=== PATIENT | female | born 1955 | race Caucasian/White ===

== ENCOUNTER 2025-02-07 14:33 | Emergency (ER) | payer MEDICARE, BC, SELFPAY ==
--- OUTSIDE RECORDS SUMMARY | 2025-02-07 14:36 | XMS_ITS | Clinical Summary ---
Author Organization [facility] Address [address] [place] [address] Care Team Providers Care Spray Technician Name Role Phone Gage Downs MD Unavailable [phone] AdinaMadelaine MD Primary Care Provider Allergies Active AllergyReactionsCriticalityNoted DateCommentsSulfa (Sulfonamide Antibiotics)Hives11/04/2008 Medications MedicationSigDispense QuantityRefillsLast FilledStart DateEnd DateStatus durable medical equipment (DME) Indications:Elevated blood pressure reading without diagnosis of hypertension Automated home BP cuff. Length of need 99 1 Each 2Active albuterol HFA (PRO-AIR; VENTOLIN; PROVENTIL) 90 mcg/actuation inhaler Indications:Subacute coughInhale 2 Puffs by mouth every 4 hours if needed for Shortness of Breath 1st choice. For breathing; use with spacer to get a full dose 1 Each 4Active alendronate (FOSAMAX) 70 mg tablet Indications:Osteoporosis, unspecified osteoporosis type, unspecified pathological fracture presenceTake 1 Tablet (70 mg) by mouth once a week in the morning. Take on empty stomach with full glass ofwater. Do not lie down for 1 hr. 12 Tablet 5Active montelukast (SINGULAIR) 10 mg tablet Indications:Seasonal allergiesTake 1 Tablet (10 mg) by mouth at bedtime. 90 Tablet 5Active venlafaxine (EFFEXOR XR) 75 mg cp24 Extended-Release capsule Indications:AnxietyTake 1 Capsule (75 mg) by mouth once daily with a meal. 90 Capsule 5Active venlafaxine (EFFEXOR XR) 37.5 mg Extended-Release capsule Indications:AnxietyTake 1 Capsule (37.5 mg) by mouth once daily with a meal. Take with 75 mg dose for total dose of 112.5 mg/day 90 Capsule 5Active montelukast (SINGULAIR) 10 mg tablet Indications:Seasonal allergiesTake 1 Tablet (10 mg) by mouth at bedtime. 90 Tablet Discontinued(Reorder (E-cancel not sent)) alendronate (FOSAMAX) 70 mg tablet Indications:Osteoporosis, unspecified osteoporosis type, unspecified pathological fracture presenceTake 1 Tablet (70 mg) by mouth once a week in the morning. Take on empty stomach with full glass ofwater. Do not lie down for 1 hr. 12 Tablet Discontinued(Reorder (E-cancel not sent)) venlafaxine (EFFEXOR XR) 75 mg cp24 Extended-Release capsule Indications:AnxietyTake 1 Capsule (75 mg) by mouth once daily with a meal. 90 Capsule Discontinued(Reorder (E-cancel not sent)) venlafaxine (EFFEXOR XR) 37.5 mg Extended-Release capsule Indications:AnxietyTake 1 Capsule (37.5 mg) by mouth once daily with a meal. Take with 75mg cap for total daily dose of 112.5mg 90 Capsule Discontinued venlafaxine (EFFEXOR XR) 37.5 mg Extended-Release capsule Indications:Anxietytake 1 capsule by mouth once daily in combination with 75mg capsule for a total dose of 112.5mg. 30 Capsule Discontinued(Reorder (E-cancel not sent)) Active Problems ProblemNoted DateDiagnosed YcbdCizlhczyoh08/16/5847Meqiuve07/22/2011 Resolved Problems ProblemNoted DateDiagnosed DateResolved MkbvKrkgucuohbyq56 Encounters DateTypeDepartmentCare GnxyEwzfvsnplsv63/11/2025Results Follow-Up [facility] [address] [facility] [address] Madelaine Holden MD 02/04/2025 9:15 AM CSTOffice Visit [facility] [address] [place] [address] Madelaine Holden MD Medicare ANNUAL (subsequent) Visit (69 YR/Discuss when to have cardiac CT done again)02/04/20251364Ausnpt15/17/2025Refill [facility] [address] [place] [address] Madelaine Holden MD Refill Request (Venlafaxine)from Last 3 Months Immunizations ImmunizationAdministration DatesNext DueCOVID-19 vaccine ([employer] 30mcg/0.3mL) MD BEATRIZV08/12/2020,07/22/2020InflJAYDE orellana3 (Age >=3 years) 12/25/2003,01/23/2003Pneumococcal Conj 20-valent (Prevnar 20)11/30/2021Tdap 10/12/2017Zoster (Shingrix-RZV, recombinant)04/22/2019,10/18/2018 Family History Medical HistoryRelationNameCommentsDiabetesBrotherFrontotemporal dementia DaughterCancer-prostateFatherCoronary artery diseaseFatherDiabetesFatherDiabetes MotherAnesthesia ProblemNo Family HistoryBlood DiseaseNo Family History Cancer-breastNo Family HistoryCancer-ovarianNo Family HistoryRelationNameStatus CommentsBrotherDaughterAliveFatherMother Social History Tobacco UseTypesPacks/DayYears UsedDateSmoking Tobacco: NeverSmokeless Tobacco: Never Tobacco Cessation:Counseling Given: Yes Alcohol UseStandard Drinks/WeekCommentsYes0 (1 standard drink = 0.6 oz pure alcohol)rareHumiliation, Afraid, Rape, and Kick questionnaireAnswerDate Recorded Fear of Current or Ex-TghrppxLq90/23/2019Emotionally HbdkhoUq23/23/2019 Physically GivoehVq70/23/2019Sexually NlzjrdHd81/23/2019PHQ-2AnswerDate Recorded PHQ-2 TOTAL AXBAG22204/07/2024[facility] [place] [facility] - Occupational Stress QuestionnaireAnswerDate RecordedFeeling of StressNot at all 10/18/2018Exercise Vital SignAnswerDate RecordedDays of Exercise per Week4 days 10/18/2018Minutes of Exercise per Yunzijz07 min10/18/2018Social Connections AnswerDate RecordedDo you often feel lonely or isolated from those around you?0 01/18/2024lcohol UseAnswerDate RecordedHow often do you have a drink containing alcohol?verage Number of DrinksNot on file02/04/2025Frequency of Binge DrinkingNot on file02/04/2025Financial Resource StrainAnswerDate Recorded Difficulty of Paying Living Jqdseozi188/22/2024ifficulty of Paying Living ExpensesNot on file01/18/2024Food InsecurityAnswerDate RecordedDo you worry your food will run out before you are able to buy more?Transportation NeedsAnswerDate RecordedDoes lack of transportation keep you from medical appointments?oes lack of transportation keep you from work, meetings or getting things that you need?Housing StabilityAnswerDate Recorded What is your housing situation today?UtilitiesAnswerDate RecordedDo you have trouble paying for utilities (for example, heat, electricity, water, phone)?regnantCommentsNoSex and Gender InformationValueDate Recorded Sex Assigned at BirthNot on fileLegal PniFusscc45/14/2013 5:24 AM CSTGender IdentityNot on fileSexual OrientationNot on fileOccupationIndustryJob Start Date Job End DateNot on fileNot on fileNot on fileNot on file Last Filed Vital Signs Vital SignReadingTime TakenCommentsBlood Fmvfzawn698/7802/04/2025 9:20 AM ACCOUNTING RECONCILIATION CLERK Xvstx5427 9:20 AM GXEWsvedkeunaw94.7 ??C (98 ??F)08/03/2021 11:04 AM CDT Respiratory Ffzv8525 11:24 AM CDTOxygen Sljsxlbwde47%02/04/2025 9:20 AM CSTInhaled Oxygen Concentration--Fwvqoy18.4 kg (155 lb 3.2 oz)02/04/2025 9:20 AM VRVBjykja415 cm (5' 5.35)02/04/2025 9:20 AM CSTBody Mass Index25.5502/04/2025 9:20 AM ACCOUNTING RECONCILIATION CLERK Plan of Treatment DateTypeDepartmentCare Team (Latest Contact Info)Ovqkizfvmxy87/17/2025 1:20 PM CSTAncillary Procedure [facility] [address] [place] [place] [address] Health MaintenanceDue DateLast DoneCommentsFecal testing non-DNA (FIT,FOBT,iFOBT) for age 45-750OVID-19 vaccine series (2024- season), 07/22/2020Influenza Vaccine (#1)2024 12/25/2003, 01/23/2003Mammogram for age 45-75, 01/09/2023, 12/08/2021, Additional history existsBMI (ht and wt on same day) for age 18+ , 01/18/2024, 01/05/2023, Additional history exists Depression screening for age 12+, 02/06/2024, 01/18/2024, Additional history existsMedicare Wellness for age 65+, 01/18/2024, 01/05/2023Tetanus , 06/07/2008 (Completed outside of [facility])Lipids for age 45-75, 01/18/2024, 01/05/2023, Additional history existsRSV vaccine for adults or (1 - 1- dose 75+ series)11/05/2030Hepatitis C screening for age 18-25Zcgxoxobr83/23/2019 Zoster (shingles) series for age 50+Guiwgzkyu38/25/2020, 10/18/2018Pneumococcal series for age 50+Eqgegevka68/05/2022DEXA/DXA scan for age 65+Completed 02/06/2024, 12/08/2021, 11/12/2018, Additional history existsHepatitis B series for 19+Aged OutNo longer eligible based on patient's age to complete this topic Procedures Procedure NamePriorityDate/TimeAssociated DiagnosisCommentsGLUCOSE, FASTING Vrsgund4102/04/2025 9:51 AM ACCOUNTING RECONCILIATION CLERK Diabetes mellitus screening LIPID PANEL W REFLEX MEASURED IURQhkluta27/10/2025 9:51 AM ACCOUNTING RECONCILIATION CLERK Hyperlipidemia, unspecified hyperlipidemia type XR MAMMO NETO BILAT SELXZJBhlniau13/11/2024 9:33 AM ACCOUNTING RECONCILIATION CLERK Routine adult health maintenance XR DXA BONE DENSITY 2 SITES SGZTNSwjkzsx67/11/2024 8:50 AM ACCOUNTING RECONCILIATION CLERK Menopause OCCULT BLOOD IFOBT EAHKUOexuarl47/24/2023 7:00 AM CDT Screening for colon cancer ANTI JQRWsrysiq25/23/2019 10:02 AM CDT Need for hepatitis C screening test from Last 3 Months or Most Recently Relevant to Health Maintenance Results * LIPID PANEL W REFLEX MEASURED LDL (02/04/2025 9:51 AM ACCOUNTING RECONCILIATION CLERK)ComponentValueRef RangeTest MethodAnalysis TimePerformed AtPathologist SignatureCHOLESTEROL, NSOOB861<200 mg/dL02/05/2025 3:37 AM CSTQUEST BBBTMOQCIGROQOQTRWOBVCPL178<150 mg/dL02/05/2025 3:37 AM CSTQUEST DIAGNOSTICSHDL KHWGZVNWUNR11> OR = 50 mg/dL 02/05/2025 3:37 AM CSTQUEST DIAGNOSTICSNON HDL GPJHGKCNGAF278<130 mg/dL (calc) 02/05/2025 3:37 AM CSTQUEST DIAGNOSTICSComment: For patients with diabetes plus 1 major ASCVD risk factor, treating to a non-HDL-C goal of <100 mg/dL (LDL-C of <70 mg/dL) is considered a therapeutic option. CHOL/HDLC RATIO3.3<5.0 (calc)02/05/2025 3:37 AM CSTQUEST DIAGNOSTICS LDL-KNGEKFKWIFZ61bu/dL (calc)02/05/2025 3:37 AM CSTQUEST DIAGNOSTICSComment: Reference range: <100 Desirable range <100 mg/dL for primary prevention; <70 mg/dL for patients with CHD or diabetic patients with > or = 2 CHD risk factors. LDL-C is now calculated using the Brennan calculation, which is a validated novel method providing better accuracy than the Friedewald equation in the estimation of LDL-C. Cj SS et al. KEVIN. 2013;310(85): 0534-3221 (http://education.Capablue.Simple.TV/faq/EMK578) Specimen (Source)Anatomical Location / LateralityCollection Method / Volume Collection TimeReceived TimeBloodBLOOD SPECIMEN / UnknownQuest Collect / Unknown 02/04/2025 9:51 AM CST02/04/2025 9:51 AM ACCOUNTING RECONCILIATION CLERK Narrative Authorizing ProviderResult TypeResult StatusMadelaine Holden MDCHEMISTRY Final ResultPerforming OrganizationAddressty/State/ZIP CodePhone Number [employer] [place] [address] [place] [address], [place] [phone] * GLUCOSE, FASTING (02/04/2025 9:51 AM ACCOUNTING RECONCILIATION CLERK)ComponentValueRef RangeTest Method Analysis TimePerformed AtPathologist MlfjyktimIPTXZYF6875 - 99 mg/dL02/05/2025 3:37 AM CSTQUEST DIAGNOSTICSComment: ? Fasting reference interval Specimen (Source)Anatomical Location / LateralityCollection Method / Volume Collection TimeReceived TimeBloodBLOOD SPECIMEN / UnknownQuest Collect / Unknown 02/04/2025 9:51 AM CST02/04/2025 9:51 AM ACCOUNTING RECONCILIATION CLERK Narrative Authorizing ProviderResult TypeResult StatusMadelaine Holden MDCHEMISTRY Final ResultPerforming OrganizationAddressty/State/ZIP CodePhone Number [employer] [facility] [address] [place] [address], [place] [phone] * XR MAMMO NETO BILAT SCREEN (02/06/2024 9:33 AM ACCOUNTING RECONCILIATION CLERK)Anatomical RegionLaterality ModalityBREASTS, Breast Left, Breast RightBilateralMammographySpecimen (Source)Anatomical Location / LateralityCollection Method / VolumeCollection TimeReceived Time Impressions 02/06/2024 2:34 PM ACCOUNTING RECONCILIATION CLERK There is no radiographic evidence for malignancy. Recommend annual mammograms. MAMMOGRAM ASSESSMENT: ??ACR 1 Negative PATIENTS: You will also receive a letter with your examination results in an easy to read format. ??If you have questions about your results, please contact your referring provider. Narrative 02/06/2024 2:34 PM ACCOUNTING RECONCILIATION CLERK For Patients: As a result of the Cures Act, medical imaging exams and procedure reports are released immediately into your electronic medical record. You may view this report before your referring provider. If you have questions, please contact your health care provider. XR MAMMO NETO BILAT SCREEN [[id number]] CLINICAL HISTORY: ??This is an asymptomatic 68 y.o. patient. INDICATION FOR EXAM: Mammogram Screening. TECHNIQUE: CC & MLO views were obtained. This study was evaluated with the assistance of Computer-Aided Detection. Breast Tomosynthesis was used in interpretation. COMPARISON FILM: Yes 01/09/23 [facility] 12/08/21 [employer] FINDINGS: ??There are scattered areas of fibroglandular density. There are no dominant masses, suspicious micro calcifications or areas of architectural distortion. Authorizing ProviderResult TypeResult StatusMadelaine Holden MDMAMMOFinal Result * (ABNORMAL) XR DXA BONE DENSITY 2 SITES AXIAL (02/06/2024 8:50 AM ACCOUNTING RECONCILIATION CLERK) Anatomical RegionLateralityModalitySpine, HIPS, HIPL, HIPROtherSpecimen (Source)Anatomical Location / LateralityCollection Method / VolumeCollection TimeReceived Time Impressions 02/12/2024 1:51 PM ACCOUNTING RECONCILIATION CLERK Osteopenia. Due to the stability of the bone density, continue present medication if indicated. RECOMMENDATIONS: The National Osteoporosis Foundation recommends pharmacologic treatment for patients with T-scores of -2.5 or less, patients with prior history of fragility fractures, or patients with 10-year probability of greater than 3% at hips or greater than 20% of suffering major osteoporotic fractures. Recommend continued optimization of calcium and vitamin D intake through dietary means and/or supplementation and regular exercise. Continue current Alendronate (Fosamax) medication treatment. Consider a drug holiday from bisphosphonates if indicated. Kamala Mesa PA-C [facility] 02/12/2024 ?? Narrative 02/12/2024 1:51 PM ACCOUNTING RECONCILIATION CLERK For Patients: Results are automatically released to your [facility] ([employer]) account once available, in compliance with federal regulations. This means that you may see your results before your provider has had a chance to review them. Please allow 2-3 business days for your provider to comment on the results. XR DXA Bone Mineral Density (BMD) EXAM LOCATION: [address] [address] PATIENT NAME: Kailee Healy DATE OF : 1955 EXAM DATE: 02/06/2024 REQUESTING PROVIDER: Madelaine Holden MD GENDER AT : female HEIGHT: 5' 5.25 (01/18/2024) WEIGHT: ??163 lb 3.2 oz (01/18/2024) MENOPAUSAL STATUS: Postmenopausal RACE/ETHNICITY: White RISK FACTORS: White Race CURRENT MEDICATION FOR BONE LOSS: Alendronate (Fosamax) INDICATION: Follow-up of existing osteopenia, Follow-up of pharmacologic treatment, and Post-Menopause COMPARISON DATE(S): 2021 DXA scans are compared to prior studies for a patient only when the two (or more) studies were performed on the same scanner. It is not possible to compare data generated on one scanner to data from another because there are not standards in DXA equipment. This applies even if the two scanners are made by the same supervisor putty and caluking. PROCEDURE: Dual-energy x-ray absorptiometry performed with routine technique. Reporting is completed in the form of a T-score. The T-score represents the standard deviation from peak bone mass based on young healthy adult. A Z-score is used for diagnosis in premenopausal women, and for men under the age of 50. FINDINGS: RESULT LUMBAR SPINE L1 - L4 BMD: 1.106 g/cm2 T-Score: - 0.7 Z-Score: + 0.6 Change from prior in 2021: ??Increase 13.4%. RESULTS FEMUR Left femoral neck BMD: 0.809 g/cm2 T-Score: - 1.6 Z-Score: - 0.2 Change from prior in 2021: ??Increase 2.7%. Right femoral neck BMD: 0.758 g/cm2 T-Score: - 2.0 Z-Score: - 0.6 Change from prior in 2021: ??Increase 1.6%. Left hip BMD: 0.796 g/cm2 T-Score: - 1.7 Z-Score: - 0.5 Change from prior in 2021: ??Increase 6.6%. Right hip BMD: 0.785 g/cm2 T-Score: - 1.8 Z-Score: - 0.6 Change from prior in 2021: ??Increase 7.2%. WHO criteria: Normal: T-score at or above -1 SD Osteopenia: T-score between -1.1 and -2.4 SD Osteoporosis: T-score at or below -2.5 SD Authorizing ProviderResult TypeResult StatusMadelaine Holden MDDEXAFinal Result * OCCULT BLOOD IFOBT STOOL (07/19/2022 7:00 AM CDT)ComponentValueRef RangeTest MethodAnalysis TimePerformed AtPathologist SignatureSTOOL BLOOD ,IFOBTNegative Qzcwbkqs82/26/2023 8:06 AM [facility]IC[facility] (Source)Anatomical Location / LateralityCollection Method / VolumeCollection TimeReceived TimeStoolSTOOL SPECIMEN / UnknownNon-Blood / Lnadekr1307/19/2022 7:00 AM CDT07/20/2022 7:30 AM CDT Narrative Authorizing ProviderResult TypeResult StatusMadelaine Holden MDLABORATORY Final ResultPerforming OrganizationAddressCity/State/ZIP CodePhone Number [facility] [address] [place] [address], * ANTI HCV [[id number]] (10/18/2018 10:02 AM CDT)ComponentValueRef RangeTest Method Analysis TimePerformed AtPathologist SignatureHEPATITIS C ANTIBODYNon-Reactive Non-Hycpxivj24/23/2019 7:07 PM [facility] Comment:Antibodies to HCV not detected; does not exclude the possibility of exposure to HCV.Specimen (Source)Anatomical Location / LateralityCollection Method / VolumeCollection TimeReceived TimeBloodBLOOD SPECIMEN / Unknown Venipuncture / Gxlhhgv9310/18/2018 10:02 AM CDT10/18/2018 10:02 AM CDT Narrative Authorizing ProviderResult TypeResult StatusMadelaine Holden MDSEND OUTS Final ResultPerforming OrganizationAddressCity/State/ZIP CodePhone Number [facility] [address] [place] [address], from Last 3 Months or Most Recently Relevant to Health Maintenance Insurance * Guarantor: Kailee Healy TypeRelation to PatientDate of BirthPhone Billing AddressPersonal/EczjvyAbxi46/10/1956 [address] [address] * Guarantor: Kailee Healy TypeRelation to PatientDate of BirthPhone Billing BnkpfjlEhlxzuXaft[birth year][address] [place] [address] [place] [id number] Care Teams Team MemberRelationshipSpecialtyStart DateEnd Date Madelaine Holden MD [address] [place] [address] PCP - GeneralFamily Bcoqkvbm79/24/25 Gage Downs MD [address] [facility] [address] [place] [address] SsmrzjmsxlnlYrlrzsjvpuie36/8/19
[2025-02-07 14:49] VITALS: BP 159/75; PULSE 87; RESP 18; TEMP 36.3; O2SAT 94; BMI 25.8
--- NOTE | 2025-02-07 14:52 | CRLHL7_ITS ---
For Patients: As a result of the Cures Act, medical imaging exams and procedure reports are released immediately into your electronic medical record. You may view this report before your referring provider. If you have questions, please contact your health care provider. INDICATION: Fall off step ladder, elbow injury TECHNIQUE: Elbow radiograph 3 views left COMPARISON: None FINDINGS: Bone: There is an intra-articular fracture of the capitellum present with the fracture fragment displaced and rotated 90 degrees. There is a linear lucency over the radial head seen on one view which may be due to a nondisplaced intra-articular fracture. Joint: The elbow joint is unremarkable. A moderate elbow effusion is present likely due to hemarthrosis. Soft tissue: Unremarkable. No radiopaque foreign bodies are seen. IMPRESSIONS: 1. There is an intra-articular fracture of the capitellum present with the fracture fragment displaced and rotated 90 degrees. 2. There is a linear lucency over the radial head seen on one view which may be due to a nondisplaced intra-articular fracture. Dictated by Travis Marte MD @ 02/07/2025 3:35:02 PM Dictated by: Travis Marte MD @ 02/07/2025 15:35:07 (Electronically Signed)
--- NOTE | 2025-02-07 14:52 | CRLHL7_ITS ---
For Patients: As a result of the Cures Act, medical imaging exams and procedure reports are released immediately into your electronic medical record. You may view this report before your referring provider. If you have questions, please contact your health care provider. INDICATION: Fall off step ladder, forearm injury TECHNIQUE: Forearm radiograph 2 views left COMPARISON: None FINDINGS: Bone: Fractures of the elbow and radial head are present and assessed on separate report. The remainder of the radius and ulna are unremarkable in appearance. Joint: Moderate osteoarthritis of the radiocarpal joint noted. A moderate elbow effusion is seen. Soft tissue: Unremarkable. No radiopaque foreign bodies are seen. IMPRESSIONS: 1. The remainder of the radius and ulna are unremarkable in appearance. 2. Fractures of the elbow and radial head are present and assessed on separate report. Dictated by Travis Marte MD @ 02/07/2025 3:35:50 PM Dictated by: Travis Marte MD @ 02/07/2025 15:36:02 (Electronically Signed)
--- NOTE | 2025-02-07 16:10 | ED.GENADULT ---
HPI - General Adult General Chief complaint: Extremity Pain/Injury, Upper Stated complaint: fell off step ladder- L arm injury Time Seen by Provider: 02/07/25 15:33 History of Present Illness HPI narrative: pt was putting up garland and fell off 3 step ladder, fell on outstretched left arm, pain in forearm, and elbow 69-year-old woman presenting to the emergency department following an injury to her left arm, elbow. Apparently was up a short step ladder trying to hang some [place] and slipped. She maintains did not injure anything else other than her elbow. Did not hit her head. No neck or back pain. Landed on her outstretched left arm. Has been having pain through the left arm elbow to forearm. Does not feel she needs any pain medication or antiemetic. Nor ice. By the time I am seeing Ms. Healy, She has had imaging of the left forearm and elbow. By my independent review looks like there is a displaced Humeral capitellar fracture and radial head fracture/avulsion fracture. I did contact Orthopedics as I think there will be surgical needs here. Related Data Home Medications ?Medication ?Instructions ?Recorded ?Confirmed alendronate 70 mg tablet 70 mg PO 02/07/25 montelukast 10 mg tablet 10 mg PO QPM 02/07/25 02/07/25 venlafaxine 37.5 mg 37.5 mg PO DAILY 02/07/25 02/07/25 capsule,extended release 24 hr venlafaxine 75 mg capsule,extended 75 mg PO DAILY 02/07/25 02/07/25 release 24 hr Allergies Allergy/AdvReac Type Severity Reaction Status Date / Time Sulfa (Sulfonamide Allergy Hives Verified 02/07/25 14:49 Antibiotics) Review of Systems Status of ROS: Reports: 6 or more systems reviewed and unremarkable except as noted in History and below [facility] Social History Smoking Status: Never smoker Do you use any of these nicotine containing products: None How often do you have a drink containing alcohol: never AUDIT-C Alcohol total score: 0 Non-prescribed substance use: denies use Exam Narrative: Exam Narrative: With good energy. Last easily. Favoring left arm at her left side nearly straight. Well-perfused peripherally. Swelling about the elbow. Palpation to the wrist refers pain up the forearm she says but not with discrete pain about the wrist or hand. No pain to palpation about the left shoulder or clavicles. Neck is supple back and neck nontender. Head looks atraumatic. Does have discrete pain to palpation about the radial head as well. Const: Vital Signs, click to edit/add: Vital Signs - 24 hr 02/07/25 14:49 Temperature 97.3 F L Pulse Rate [Right Pulse Oximeter] 87 Respiratory Rate 18 Blood Pressure [Ri ght Upper Arm] 159/75 H Pulse Oximetry 94 Oxygen Delivery Me thod Room Air Documenting provider has reviewed patient's vital signs: yes Course Vital Signs Vital signs: Initial Vital Signs Temperature 97.3 F L 02/07/25 14:49 Temperature Source Temporal Artery Scan 02/07/25 14:49 Pulse Rate 87 02/07/25 14:49 Respiratory Rate 18 02/07/25 14:49 Blood Pressure 159/75 H 02/07/25 14:49 Blood Pressure Mean 103 02/07/25 14:49 Blood Pressure Position Sitting 02/07/25 14:49 Pulse Oximetry 94 02/07/25 14:49 Oxygen Delivery Method Room Air 02/07/25 14:49 Vital Signs Temperature 97.3 F L 02/07/25 14:49 Pulse Rate 87 02/07/25 14:49 Respiratory Rate 18 02/07/25 14:49 Blood Pressure 159/75 H 02/07/25 14:49 Pulse Oximetry 94 02/07/25 14:49 Oxygen Delivery Method Room Air 02/07/25 14:49 Temperature 97.3 F L 02/07/25 14:49 Pulse Rate 88 02/07/25 17:22 Respiratory Rate 20 02/07/25 17:22 Blood Pressure 155/92 H 02/07/25 17:22 Pulse Oximetry 93 02/07/25 17:22 Oxygen Delivery Method Room Air 02/07/25 17:22 Medical Decision Making MDM Narrative Medical decision making narrative: Does not appear to have sustained injury beyond the left elbow at this point. INDICATION: Fall off step ladder, elbow injury TECHNIQUE: Elbow radiograph 3 views left COMPARISON: None FINDINGS: Bone: There is an intra-articular fracture of the capitellum present with the fracture fragment displaced and rotated 90 degrees. There is a linear lucency over the radial head seen on one view which may be due to a nondisplaced intra-articular fracture. Joint: The elbow joint is unremarkable. A moderate elbow effusion is present likely due to hemarthrosis. Soft tissue: Unremarkable. No radiopaque foreign bodies are seen. IMPRESSIONS: 1. There is an intra-articular fracture of the capitellum present with the fracture fragment displaced and rotated 90 degrees. 2. There is a linear lucency over the radial head seen on one view which may be due to a nondisplaced intra-articular fracture. Dictated by Travis Marte MD @ 02/07/2025 3:35:02 PM INDICATION: Fall off step ladder, forearm injury TECHNIQUE: Forearm radiograph 2 views left COMPARISON: None FINDINGS: Bone: Fractures of the elbow and radial head are present and assessed on separate report. The remainder of the radius and ulna are unremarkable in appearance. Joint: Moderate osteoarthritis of the radiocarpal joint noted. A moderate elbow effusion is seen. Soft tissue: Unremarkable. No radiopaque foreign bodies are seen. IMPRESSIONS: 1. The remainder of the radius and ulna are unremarkable in appearance. 2. Fractures of the elbow and radial head are present and assessed on separate report. Dictated by Travis Marte MD @ 02/07/2025 3:35:50 PM Orthopedics happened to be about and I consulted with them anticipating surgery. Recommending further evaluation with CT They assisted in placing a posterior long-arm splint. Tolerated well. I do independently review CT imaging of the left elbow. This does show comminution the distal humerus/capitellum with intra-articular involvement INDICATION: Fracture. TECHNIQUE: CT left elbow without contrast. COMPARISON: Left elbow and forearm radiographs: 02/07/2025. FINDINGS: Acute comminuted fracture distal humerus with extension into the trochlear and capitellar articular surfaces as well as into the lateral epicondyle. Suspect nondisplaced radial head fracture with intra-articular extension better seen on the radiographs. Small hemarthrosis. Soft tissue swelling over the olecranon. The muscles and subcutaneous structures are otherwise unremarkable. IMPRESSION: Acute comminuted intra-articular distal humerus fracture. Probable acute nondisplaced intra-articular radial head fracture. Please note that all CT scans at this facility use dose modulation, iterative reconstruction, and/or weight-based dosing when appropriate to reduce radiation dose to as low as reasonably achievable. Dictated by Chuck Cross MD @ 02/07/2025 5:01:44 PM Due to more involved nature of the elbow orthopedics is recommending further consultation/cares at tertiary facility. See patient discharge plan for further discussion Can probably carefully remove the wrap to ice your elbow if you would like to. Otherwise wear this splint to provide stability and comfort until follow-up. Per recommendation by Dr. Box you are to call to [facility] [phone] (Dr. Humble Clark) or [facility] [phone] (Dr. Rosaura Rincon) to be seen by the middle/end of this coming week. Anticipating surgical intervention. Take this disc of images of x-ray and CT with you to your appointment. Elevate for comfort. Also ibuprofen or acetaminophen. Be seen for uncontrolled pain, new numbness or weakness. Happier holidays. Discharge Plan Discharge Clinical Impression: Elbow fracture, left Patient Disposition: Home w/ Parent or Adult Condition: Improved Additional Instructions: Can probably carefully remove the wrap to ice your elbow if you would like to. Otherwise wear this splint to provide stability and comfort until follow-up. Per recommendation by Dr. Box you are to call to [facility] [phone] (Dr. Humble Clark) or [facility] [phone] (Dr. Rosaura Rincon) to be seen by the middle/end of this coming week. Anticipating surgical intervention. Take this disc of images of x-ray and CT with you to your appointment. Elevate for comfort. Also ibuprofen or acetaminophen. Be seen for uncontrolled pain, new numbness or weakness. Happier holidays. Prescriptions: No Action venlafaxine 37.5 mg capsule,extended release 24hr 37.5 mg PO DAILY venlafaxine 75 mg capsule,extended release 24hr 75 mg PO DAILY alendronate 70 mg tablet 70 mg PO montelukast 10 mg tablet 10 mg PO QPM Follow Up/Referrals: Madelaine Holden MD [Primary Care Provider, Family Practice] Stand Alone Forms: [facility] Info Instructions
--- NOTE | 2025-02-07 16:22 | CRLHL7_ITS ---
For Patients: As a result of the Century Cures Act, medical imaging exams and procedure reports are released immediately into your electronic medical record. You may view this report before your referring provider. If you have questions, please contact your health care provider. INDICATION: Fracture. TECHNIQUE: CT left elbow without contrast. COMPARISON: Left elbow and forearm radiographs: 02/07/2025. FINDINGS: Acute comminuted fracture distal humerus with extension into the trochlear and capitellar articular surfaces as well as into the lateral epicondyle. Suspect nondisplaced radial head fracture with intra-articular extension better seen on the radiographs. Small hemarthrosis. Soft tissue swelling over the olecranon. The muscles and subcutaneous structures are otherwise unremarkable. IMPRESSION: Acute comminuted intra-articular distal humerus fracture. Probable acute nondisplaced intra-articular radial head fracture. Please note that all CT scans at this facility use dose modulation, iterative reconstruction, and/or weight-based dosing when appropriate to reduce radiation dose to as low as reasonably achievable. Dictated by Chuck Cross MD @ 02/07/2025 5:01:44 PM (Electronically Signed)
[2025-02-07 17:22] VITALS: BP 155/92; PULSE 88; RESP 20; O2SAT 93
== END 2025-02-07 17:40 | disposition home or self-care (01) ==
PROVIDERS: Emergency Provider Family Medicine; PCP Family Medicine
DX: S42.402A Unspecified fracture of lower end of left humerus, initial encounter for closed fracture (principal); S52.125A Nondisplaced fracture of head of left radius, initial encounter for closed fracture; W11.XXXA Fall on and from ladder, initial encounter
CPT/HCPCS: 73080; 73090; 73200; 99284